=== PATIENT | female | born 1980 | race African-American/Black ===

== ENCOUNTER 2017-01-01 06:49 | Emergency (ER) | payer OTHER ==
[~2017-01-01] VITALS: Ht 160 cm; Wt 70.0 kg
[~2017-01-01 06:49] MED LIST: BIOT10TA PO; FOLI800T PO; GABA300C5 PO; MAXA5TAB2; PERC5TAB12 PO; SYMB80AE INH; TOPA25TA8 PO; VENTAER INH
[2017-01-01 06:53] VITALS: BP 133/75; PULSE 66; RESP 16; TEMP 98.9; O2SAT 99
[2017-01-01] MEDS ORDERED: ONDANSETRON ODT 4 MG TAB PO/SL ONE (07:45)
[2017-01-01] MEDS ORDERED: KETOROLAC TROMETHAMINE 60 MG/2 ML (IM) VIAL IM ONE (07:45)
[2017-01-01] MEDS ORDERED: diphenhydrAMINE HCL 50 MG CAP PO ONE (07:45)
--- NOTE | 2017-01-01 07:55 | PD ---
HPI Chief Complaint: Headache Time Seen by Provider: 07:34 Travel History International Travel<30 days: No Contact w/Intl Traveler<30days: No Traveled to known affect area: No History of Present Illness HPI 36-year-old female presents to the emergency Department with complaint of a bilateral frontal headache 1 week. She has history of migraines since high school and this headache is consistent with past headaches. She is currently taking Depakote, gabapentin, and tizanidine for her migraine headaches. She had gradual onset of headache approximately one week ago which fluctuates in intensity. She says it's worse in the morning and is somewhat better throughout the day. She has also been trying ibuprofen and PCP outer with some good relief yesterday. She reports nausea without vomiting. Reports photophobia and phonophobia. Denies focal deficits or weakness. Denies paresthesias, loss of sensation, decreased range of motion, decreased strength to all extremities. Denies change in vision. Denies change in gait. Denies slurred speech. She describes headache as a pressure. Rates headache 9/10. The headache is worse with movement. The pain is somewhat relieved with Depakote, NSAIDs, ice. She sees a neurologist, Dr. Alexsandra Acosta. She does have an appointment with her neurologist today at [address] PM[address] She had a CT scan within the last couple months which was negative per the patient. Her primary care provider is Dr. Fan. She has history of asthma and migraine headaches. Allergies to codeine, latex, Phenergan, Ultram, atenolol. No other modifying factors or associated signs and symptoms. PFSH Past Medical History Asthma: Yes Diminished Hearing: No GERD: Yes Migraines: Yes Tetanus Vaccination: Unknown ?: Not LMP: 3 YRS AGO Past Surgical History Section: Yes (twice) Social History Alcohol Use: Yes (occas. wine) Tobacco Use: No Substance Use: No Allergies-Medications (Allergen,Severity, Reaction): Coded Allergies: Codeine (Verified Allergy, Severe, HIVES, 01/01/17) Ultram (Verified Allergy, Severe, SOB/VOMITS, 01/01/17) Latex (Verified Allergy, Intermediate, RASH, 01/01/17) Phenergan (Verified Allergy, Mild, 01/01/17) Reported Meds & Prescriptions Reported Meds & Active Scripts Active Reported Maxalt (Rizatriptan Benzoate) 5 Mg Tab Ventolin Hfa 18 GM Inh (Albuterol Sulfate) 90 Mcg/Act Aer 1 Puff INH Q4H PRN Symbicort Inh (Budesonide/Formoterol Fumarate) 80-4.5 Mcg/Act Aero 1 Puff INH Q12HR Percocet (Oxycodone-Acetaminophen) 5-325 mg Tab 1 Tab PO Q6H PRN Folic Acid 800 Mcg Tab 800 Mcg PO DAILY Biotin 10 Mg Tab 10 Mg PO DAILY Topamax (Topiramate) 25 Mg Tab 75 Mg PO BID Gabapentin 300 Mg Cap 100 Mg PO DAILY Gabapentin 300 Mg Cap 300 Mg PO DAILY Review of Systems Except as stated in HPI: all other systems reviewed are Neg Physical Exam Narrative GENERAL: Well-nourished, well-developed female patient, in no acute distress; afebrile, nontoxic-appearing; sitting up in bed with an icepack on top of head in dark room SKIN: Warm and dry. HEAD: Atraumatic. Normocephalic. No facial droop noted. Tongue midline. EYES: Pupils equal and round at 3 mm with brisk reaction. No scleral icterus. No injection or drainage. PERRLA. EOMI. ENT: Mucosa pink and moist. Airway patent. NECK: Trachea midline. No lymphadenopathy. CARDIOVASCULAR: Regular rate and rhythm. No murmur appreciated. RESPIRATORY: No accessory muscle use. Clear to auscultation. Breath sounds equal bilaterally. GASTROINTESTINAL: Abdomen soft, non-tender, nondistended. Hepatic and splenic margins not palpable. Bowel sounds are active 4 quadrants. MUSCULOSKELETAL: No obvious deformities. No clubbing. No cyanosis. No edema. NEUROLOGICAL: Awake and alert. Oriented 4. No obvious cranial nerve deficits. Motor grossly within normal limits. Normal speech. No ataxia. No mid -line drift. Moves all extremities. 5/5 strength to all extremities. PSYCHIATRIC: Appropriate mood and affect; insight and judgment normal. Data Data Last Documented VS Vital Signs Date Time Temp Pulse Resp B/P Pulse Ox O2 Delivery O2 Flow Rate FiO2 01/01/17 06:53 98.9 66 16 133/75 99 Orders Ketorolac Inj (Toradol Inj) (01/01/17 07:45) Ondansetron Odt (Zofran Odt) (01/01/17 07:45) Diphenhydramine (Benadryl) (01/01/17 07:45) [facility] Medical Decision Making Medical Screen Exam Complete: Yes Emergency Medical Condition: Yes Medical Record Reviewed: Yes Differential Diagnosis Migraine headache, tension headache, acute headache Narrative Course 35-year-old female with history of migraine headaches that is currently taking Depakote, gabapentin, and tizanidine for her headaches. She has had a headache for the past week that she has not been able to get rid of. She has had a recent CT scan in the last couple months that was negative per the patient. She has an appointment today at 3 PM with her neurologist, Dr. Acosta. Neuro exam is unremarkable. She has no focal deficits or weakness. Vital signs are stable. The patient has close follow-up with neurology and has an appointment today, and states she's had a recent CT scan in the last couple months, I do not feel CT of the head is necessary at this time. I will treat the patient's headache and have her follow up with her neurologist today as scheduled. Toradol, Benadryl, Zofran ordered. 0903: Patient states her headache has decreased to about a 6/10. She says the throbbing sensation and pressure that has definitely decreased. Patient feels comfortable and is ready to go home. I instructed the patient to follow up at her apartment with her neurologist at 3 PM and she verbalized understanding and agreement. Instructed patient to continue medications as prescribed. Patient verbalizes understanding and agreement with treatment plan. Patient is medically cleared and stable for discharge. Discussed reasons to return to the emergency department. Instructed patient to follow up with primary care provider. Patient agrees with treatment plan. The patients vital signs are stable and the patient is stable for outpatient follow-up and treatment. Patient discharged home, stable and in no acute distress. Diagnosis Primary Impression: Headache Qualified Code: R51 - Nonintractable headache, unspecified chronicity pattern , unspecified headache type Referrals: Neurologist Primary Care Physician Patient Instructions: Acute Headache (ED), General Headache (ED), General Instructions, Migraine Headache (ED) Departure Forms: Tests/Procedures, Work Release Enter return to work date: Jan 03, 2017 Additional Instructions: Ibuprofen or Tylenol as directed and as needed to reduce headache Get plenty of rest: do not over sleep rest and relax in a dark, quiet room as needed Place an ice pack on the back of her neck to reduce head pain as needed Keep a headache diary of what triggers her headaches and what treatment is most effective Avoid identifiable triggers Avoid smoking, alcohol and caffeine consumption Reduce stress Follow-up with primary care provider within 1-2 days Follow-up with neurology as scheduled appointment today Return immediately to the emergency department with worsening symptoms Med/Other Pt SpecificInfo: No Change to Meds, No Meds Exist/No RX given Disposition: 01 DISCHARGE HOME Condition: Stable Anastasiya Stroud Jan 01, 2017 07:55
[2017-01-24] MEDS ORDERED: DIVA250ER PO (14:15)
== END 2017-01-01 09:20 | disposition home or self-care (01) ==
LOC: NEPB 06:49
DX: R51 Headache (principal); R11.0 Nausea; H53.149 Visual discomfort, unspecified; Z87.09 Personal history of other diseases of the respiratory system; Z87.19 Personal history of other diseases of the digestive system; Z86.69 Personal history of other diseases of the nervous system and sense organs
CPT/HCPCS: 96372; 99283; J1885; Q0163